=== PATIENT | female | born 1945 | race Caucasian/White ===

== ENCOUNTER → 2017-05-25 | Outpatient (CLI) | payer OTHER, BC | LOC: BMCIMAGING 10:50 | PROVIDERS: ATTEND Internal Medicine Rheumatology | DX: M17.0 Bilateral primary osteoarthritis of knee (principal); M21.161 Varus deformity, not elsewhere classified, right knee; M25.561 Pain in right knee; M25.562 Pain in left knee; M25.532 Pain in left wrist; M25.531 Pain in right wrist; M11.232 Other chondrocalcinosis, left wrist; M11.231 Other chondrocalcinosis, right wrist ==